=== PATIENT | female | born 1955 | race Caucasian/White ===

== ENCOUNTER 2016-10-15 07:21 | Inpatient (IN) | payer BC ==
[~2016-10-15] VITALS: Ht 154.9 cm; Wt 79.8 kg
[2016-10-15] MEDS ORDERED: ASPIRIN325 M3 PO (07:31)
[2016-10-15] MEDS ORDERED: NASONEX17 G1 (07:32)
[2016-10-15] MEDS ORDERED: CELEBREX200 M1 PO (07:32)
[2016-10-15 07:47] LABS: BASO % 0.2 % (0-2); EOS % 0.2 % (0-7); HCT-HEMATOCRIT 38.2 % (34.0-49.0); HGB-HEMOGLOBIN 12.7 gm/dl (12.0-15.5); IMMATURE GRANULOCYTES ABSOLUTE 0.08 tho/cmm (0-0.03); IMMATURE GRANULOCYTES PERCENT 0.4 % (0-0.3); LYMPH % 7.8 % (20-45); LYMPH ABSOLUTE COUNT 1.4 tho/cmm (0.8-4.5); MCH (MEAN CORPUSCULAR HGB) 31.1 pg (28.0-32.0); MCHC MEAN CORPUSCULAR HGB CONC 33.2 % (32.0-36.0); MCV (MEAN CELL VOLUME) 93.4 fl (82.0-96.0); MONO % 8.4 % (0-12); MONOCYTE ABSOLUTE COUNT 1.5 tho/cmm (0.0-1.2); NEUTROPHIL ABSOLUTE COUNT 14.8 tho/cmm (1.6-8.0); NEUTROPHIL-AUTOMATED 14.8 tho/cmm (1.6-8.0); PLATELET COUNT 376 tho/cmm (150-450); RED BLOOD COUNT 4.09 mil/cmm (4.00-5.20); RED CELL DISTRIBUTION WIDTH 13.5 % (12.4-16.4); WHITE BLOOD COUNT 17.9 tho/cmm (4.0-10.0)
[2016-10-15 07:55] LABS: ANION GAP 18 mmol/L (0-20); BLOOD UREA NITROGEN 23 mg/dl (6-24); CALCIUM 9.1 mg/dl (8.5-10.5); CARBON DIOXIDE-VENOUS 23 mmol/L (22-32); CHLORIDE 101 mmol/l (96-110); CREATININE 0.91 mg/dl (0.50-1.10); GLUCOSE 137 mg/dL (70-110); POTASSIUM 4.4 mmol/L (3.7-5.1); SODIUM 138 mmol/L (135-145); eGFR VALUE FOR BLACK 78 mL/Min
[2016-10-15] MEDS ORDERED: ULTRAM50 M1 PO (08:21)
[2016-10-15] MEDS ORDERED: OXYCODONE HCL5 M1 PO (08:21)
[2016-10-15] MEDS ORDERED: EXCEDRIN EXTRA1 EAC4 PO (08:45)
[2016-10-15] MEDS ORDERED: BACTRIM 400-801 EAC1 PO (08:46)
[2016-10-15 09:48] LABS: ALB/GLOB RATIO 0.9 (0.8-2.0); ALBUMIN 2.7 g/dl (3.5-5.0); ALKALINE PHOSPHATASE 162 U/L (33-138); ALT/SGPT 102 U/L (12-78); AST/SGOT 62 U/L (10-40); BILIRUBIN,DIRECT 0.2 mg/dl (0.0-0.3); BILIRUBIN,INDIRECT 0.3 mg/dL (0.0-1.0); BILIRUBIN,TOTAL 0.5 mg/dl (0-1.5)
[2016-10-15 10:02] LABS: PROCALCITONIN 0.19 ng/ml (0.05-0.09)
[2016-10-15 10:25] LABS: URINE BILIRUBIN SMALL (NEG); URINE BLOOD NEGATIVE (NEG); URINE GLUCOSE (UA) NEGATIVE (NEG); URINE KETONE LARGE (NEG); URINE LEUKOCYTE ESTERASE NEGATIVE (NEG); URINE NITRITE NEGATIVE (NEG); URINE PROTEIN MODERATE (NEG); URINE SPECIFIC GRAVITY 1.015 (1.003-1.030)
[2016-10-15 10:26] LABS: URINE APPEARANCE CLEAR; URINE COLOR YELLOW
[2016-10-15 10:33] LABS: URINE EPITHELIAL CELLS 0-1 /[HPF] (0-10); URINE RBC 0-1 /[HPF] (0-5); URINE WBC 0-1 /[HPF] (0-5)
[2016-10-15 13:54] LABS: ABG CO2 ARTERIAL 20 mmol/L (21-27); ARTERIAL BLD GAS O2 SATURATION 96 % (95-98); ARTERIAL BLOOD GAS PCO2 34 mmHg (32-45); ARTERIAL PO2 89 mmHg (70-100); BICARBONATE 19 mmol/L (21-28); BLOOD GAS BASE EXCESS -5 mM/L (-/+3); PH 7.37 Units (7.35-7.45)
[2016-10-15 17:09] LABS: INR 1.2 INR (0.9-1.1); PROTHROMBIN TIME 14.2 SECONDS (9.0-13.6)
[2016-10-16 05:28] LABS: BASO % 0.4 % (0-2); BASO ABSOLUTE COUNT 0.1 tho/cmm (0.0-0.2); EOS % 2.4 % (0-7); EOSINOPHIL ABSOLUTE COUNT 0.3 tho/cmm (0.0-0.7); HCT-HEMATOCRIT 30.2 % (34.0-49.0); HGB-HEMOGLOBIN 9.8 gm/dl (12.0-15.5); IMMATURE GRANULOCYTES ABSOLUTE 0.03 tho/cmm (0-0.03); IMMATURE GRANULOCYTES PERCENT 0.2 % (0-0.3); LYMPH % 20.9 % (20-45); LYMPH ABSOLUTE COUNT 2.6 tho/cmm (0.8-4.5); MCH (MEAN CORPUSCULAR HGB) 30.5 pg (28.0-32.0); MCHC MEAN CORPUSCULAR HGB CONC 32.5 % (32.0-36.0); MCV (MEAN CELL VOLUME) 94.1 fl (82.0-96.0); MEAN PLATELET VOLUME 10.3 cmc (9.4-12.4); MONO % 13.3 % (0-12); MONOCYTE ABSOLUTE COUNT 1.6 tho/cmm (0.0-1.2); NEUTROPHIL ABSOLUTE COUNT 7.7 tho/cmm (1.6-8.0); NEUTROPHIL-AUTOMATED 7.7 tho/cmm (1.6-8.0); NEUTROPHILS % 62.8 % (40-80); PLATELET COUNT 289 tho/cmm (150-450); RED BLOOD COUNT 3.21 mil/cmm (4.00-5.20); WHITE BLOOD COUNT 12.3 tho/cmm (4.0-10.0)
[2016-10-16 05:46] LABS: ALB/GLOB RATIO 1.2 (0.8-2.0); ALBUMIN 3.1 g/dl (3.5-5.0); ALKALINE PHOSPHATASE 121 U/L (33-138); ALT/SGPT 89 U/L (12-78); ANION GAP 11 mmol/L (0-20); AST/SGOT 57 U/L (10-40); BILIRUBIN,DIRECT 0.2 mg/dl (0.0-0.3); BLOOD UREA NITROGEN 13 mg/dl (6-24); CALCIUM 7.6 mg/dl (8.5-10.5); CARBON DIOXIDE-VENOUS 24 mmol/L (22-32); CHLORIDE 104 mmol/l (96-110); CREATININE 0.56 mg/dl (0.50-1.10); GLUCOSE 142 mg/dL (70-110); POTASSIUM 3.7 mmol/L (3.7-5.1); SODIUM 135 mmol/L (135-145); eGFR VALUE FOR BLACK >90 mL/Min
[2016-10-16 05:54] LABS: BILIRUBIN,INDIRECT 0.7 mg/dL (0.0-1.0); BILIRUBIN,TOTAL 0.9 mg/dl (0-1.5)
[2016-10-16 06:05] LABS: PROCALCITONIN 0.28 ng/ml (0.05-0.09)
[2016-10-17 06:17] LABS: IRON 18 ug/dl (37-170); IRON BINDING CAPACITY 125 ug/dl (250-450)
[2016-10-17 07:20] LABS: HCT-HEMATOCRIT 26.7 % (34.0-49.0); HGB-HEMOGLOBIN 8.8 gm/dl (12.0-15.5); IMMATURE GRANULOCYTES ABSOLUTE 0.03 tho/cmm (0-0.03); IMMATURE GRANULOCYTES PERCENT 0.4 % (0-0.3); LYMPH % 6.4 % (20-45); LYMPH ABSOLUTE COUNT 0.4 tho/cmm (0.8-4.5); MCH (MEAN CORPUSCULAR HGB) 30.7 pg (28.0-32.0); MEAN PLATELET VOLUME 10.2 cmc (9.4-12.4); MONO % 4.5 % (0-12); MONOCYTE ABSOLUTE COUNT 0.3 tho/cmm (0.0-1.2); NEUTROPHILS % 88.7 % (40-80); PLATELET COUNT 218 tho/cmm (150-450); RED BLOOD COUNT 2.87 mil/cmm (4.00-5.20); RED CELL DISTRIBUTION WIDTH 14.1 % (12.4-16.4); WHITE BLOOD COUNT 6.7 tho/cmm (4.0-10.0)
[2016-10-17 07:41] LABS: ALB/GLOB RATIO 0.9 (0.8-2.0); ALBUMIN 2.7 g/dl (3.5-5.0); ALKALINE PHOSPHATASE 111 U/L (33-138); ALT/SGPT 89 U/L (12-78); ANION GAP 12 mmol/L (0-20); AST/SGOT 50 U/L (10-40); BILIRUBIN,TOTAL 0.5 mg/dl (0-1.5); BLOOD UREA NITROGEN 6 mg/dl (6-24); CALCIUM 7.4 mg/dl (8.5-10.5); CARBON DIOXIDE-VENOUS 24 mmol/L (22-32); CHLORIDE 112 mmol/l (96-110); CREATININE 0.36 mg/dl (0.50-1.10); GLUCOSE 157 mg/dL (70-110); POTASSIUM 3.6 mmol/L (3.7-5.1); SODIUM 144 mmol/L (135-145); eGFR VALUE FOR BLACK >90 mL/Min
[2016-10-17 08:02] LABS: IRON 27 ug/dl (37-170); IRON BINDING CAPACITY 160 ug/dl (250-450)
[2016-10-18 05:27] LABS: BASO % 0.2 % (0-2); HCT-HEMATOCRIT 26.4 % (34.0-49.0); HGB-HEMOGLOBIN 8.7 gm/dl (12.0-15.5); IMMATURE GRANULOCYTES ABSOLUTE 0.11 tho/cmm (0-0.03); IMMATURE GRANULOCYTES PERCENT 1.3 % (0-0.3); LYMPH % 6.3 % (20-45); LYMPH ABSOLUTE COUNT 0.5 tho/cmm (0.8-4.5); MCH (MEAN CORPUSCULAR HGB) 30.9 pg (28.0-32.0); MCV (MEAN CELL VOLUME) 93.6 fl (82.0-96.0); MEAN PLATELET VOLUME 10.2 cmc (9.4-12.4); MONO % 5.3 % (0-12); MONOCYTE ABSOLUTE COUNT 0.4 tho/cmm (0.0-1.2); NEUTROPHIL ABSOLUTE COUNT 7.3 tho/cmm (1.6-8.0); NEUTROPHIL-AUTOMATED 7.3 tho/cmm (1.6-8.0); NEUTROPHILS % 86.9 % (40-80); PLATELET COUNT 246 tho/cmm (150-450); RED BLOOD COUNT 2.82 mil/cmm (4.00-5.20); RED CELL DISTRIBUTION WIDTH 14.2 % (12.4-16.4); WHITE BLOOD COUNT 8.4 tho/cmm (4.0-10.0)
[2016-10-18 05:45] LABS: ALB/GLOB RATIO 0.9 (0.8-2.0); ALBUMIN 2.7 g/dl (3.5-5.0); ALKALINE PHOSPHATASE 98 U/L (33-138); ALT/SGPT 101 U/L (12-78); ANION GAP 11 mmol/L (0-20); AST/SGOT 55 U/L (10-40); BILIRUBIN,TOTAL 0.6 mg/dl (0-1.5); BLOOD UREA NITROGEN 8 mg/dl (6-24); CALCIUM 7.7 mg/dl (8.5-10.5); CARBON DIOXIDE-VENOUS 25 mmol/L (22-32); CHLORIDE 108 mmol/l (96-110); CREATININE 0.44 mg/dl (0.50-1.10); GLUCOSE 178 mg/dL (70-110); POTASSIUM 3.1 mmol/L (3.7-5.1); SODIUM 141 mmol/L (135-145); eGFR VALUE FOR BLACK >90 mL/Min
[2016-10-19 05:35] LABS: HGB-HEMOGLOBIN 8.8 gm/dl (12.0-15.5); PLATELET COUNT 277 tho/cmm (150-450)
[2016-10-20 05:14] LABS: ANION GAP 10 mmol/L (0-20); BLOOD UREA NITROGEN 17 mg/dl (6-24); CALCIUM 8.1 mg/dl (8.5-10.5); CARBON DIOXIDE-VENOUS 30 mmol/L (22-32); CHLORIDE 105 mmol/l (96-110); CREATININE 0.63 mg/dl (0.50-1.10); GLUCOSE 119 mg/dL (70-110); POTASSIUM 3.5 mmol/L (3.7-5.1); SODIUM 141 mmol/L (135-145); eGFR VALUE FOR BLACK >90 mL/Min
[2016-10-20] MEDS ORDERED: SPIRIVA18 MC1 INH (11:33)
[2016-10-20] MEDS ORDERED: DULERA 200 MCG/13 G1 INH (11:34)
[2016-10-20] MEDS ORDERED: TOPROL XL50 M1 PO (11:35)
[2016-10-20] MEDS ORDERED: PROAIR HFA8.5 GM INH (11:40)
[2016-10-20] MEDS ORDERED: PREDNISONE10 M1 PO (11:42)
[2016-10-20] MEDS ORDERED: LEVOFLOXACIN750 M1 PO (12:02)
[2016-10-20] MEDS ORDERED: LASIX40 M1 PO (12:04)
[2016-10-20] MEDS ORDERED: POTASSIUM CHLO10 ME2 PO (12:05)
== END 2016-10-20 13:30 | DRG 871 ==
LOC: EDMED 07:21 → CCU 12:39 → EMR2 12:39 → PCUA 12:39 → CCU 12:42 → PCUA 10-17 16:45
PROVIDERS: Emergency Medicine; Family Medicine; Internal Medicine; Internal Medicine Cardiovascular Disease; Nurse Practitioner; ADMIT Family Medicine
PROC: 02HV33Z Insertion of Infusion Device into Superior Vena Cava, Percutaneous Approach (ICD-10-PCS; principal; 2016-10-15)
DX: A41.9 Sepsis, unspecified organism (principal); R65.21 Severe sepsis with septic shock; J96.01 Acute respiratory failure with hypoxia; I21.4 Non-ST elevation (NSTEMI) myocardial infarction; J44.9 Chronic obstructive pulmonary disease, unspecified; R94.5 Abnormal results of liver function studies; K90.0 Celiac disease; I27.2 Other secondary pulmonary hypertension; K76.89 Other specified diseases of liver; R00.0 Tachycardia, unspecified
CPT/HCPCS: A9540; A9558; C1751; C8924; C8929; C9113; J0456; J1170; J1650; J1815; J1940; J2270; J2405; J2543; J2920; J2930; J3370; J7030; J7040; J7050; P9045; P9612; Q9967